=== PATIENT | female | born 1985 | race Caucasian/White ===

== ENCOUNTER 2021-05-03 21:41 | Emergency (ER) | payer MEDICAID ==
[~2021-05-03] VITALS: Ht 167.6 cm; Wt 109.0 kg
[2021-05-03 21:45] VITALS: BP 116/71
== END 2021-05-04 04:53 | disposition left against medical advice (07) ==
LOC: ER 21:41
DX: Z53.21 Procedure and treatment not carried out due to patient leaving prior to being seen by health care provider (principal)